=== PATIENT | female | born 1955 | race Caucasian/White ===

== ENCOUNTER 2016-09-14 11:40 | Emergency (ER) | payer OTHER ==
[~2016-09-14] VITALS: Ht 165.1 cm; Wt 72.5 kg
[~2016-09-14 11:40] MED LIST: AMBIEN5 MG PO; ASPIRIN81 M2 PO; FLUOXETINE HCL20 MG PO; REQUIP1 MG PO; ROPINIROLE HCL2 MG PO; VITAMIN D31000 UNIT PO; WELLBUTRIN XL150 MG PO
[2016-09-14] MEDS ORDERED: PERCOCET 5/31 TABLET PO (12:47)
[2016-09-14] MEDS ORDERED: ZOFRAN4 MG PO (12:47)
[2016-09-14 14:01] VITALS: BP 132/79
== END 2016-09-14 14:02 | disposition home or self-care (01) ==
LOC: EME 11:40 → RME 11:40
PROC: 2W39X1Z Immobilization of Left Upper Extremity using Splint (ICD-10-PCS; principal; 2016-09-14)
DX: S52.122A Displaced fracture of head of left radius, initial encounter for closed fracture (principal); W17.89XA Other fall from one level to another, initial encounter
CPT/HCPCS: 73080; 73090; 99281; 99284

== ENCOUNTER 2017-02-28 10:19 | Day surgery (SDC) | payer OTHER ==
[~2017-02-28] VITALS: Ht 12.7 cm; Wt 70.3 kg
[~2017-02-28 10:19] MED LIST changes: +FLONASE ALLERG9.9 ML BOTH NARES; +PERCOCET 5/31 TABLET PO; +ZOFRAN4 MG PO
[2017-02-28 10:53] VITALS: BP 129/74
[2017-02-28 14:15] VITALS: BP 175/79
[2017-02-28 15:26] VITALS: BP 174/76
== END 2017-02-28 15:25 | disposition home or self-care (01) ==
LOC: SDC 10:19
PROC: 0SGP0ZZ (ICD-10-PCS; principal; 2017-02-28)
DX: M20.41 Other hammer toe(s) (acquired), right foot (principal); F41.8 Other specified anxiety disorders; Z88.2 Allergy status to sulfonamides
CPT/HCPCS: 73660; 76000; 93005; C1769; J0690; J2250; J3010; S0020